=== PATIENT | male | born 1970 | race Caucasian/White ===

== ENCOUNTER 2021-01-11 05:34 | Observation (INO) ==
--- NOTE | 2020-12-24 16:09 | PAT Medication Instructions ---
Medication Instructions Date of Service December 24, 2020 Home Medications losartan 50 mg PO HS Take evening before surgery losartan 50 mg PO HS OTHERWISE NOTHING TO EAT OR DRINK AFTER MIDNIGHT Other Notes If you have any questions please call us at [phone] or [phone] or [phone] or [phone]
--- NOTE | 2020-12-28 08:17 | Anesthesiology Consultation ---
Date of Service December 28, 2020 Assessment & Plan (1) Encounter for pre-operative examination: Chart Review Chart Review: Acceptable Risk for Surgery (pending preop Covid testing results ) and Patient seen in Pre Admission Testing Per PAT appt on 12/28/20, pt resides in [facility]. 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 Wears tania at work but not in public. Pt is NOT vaccinated. No known Covid positive contacts or Covid related symptoms. No known Covid infection in the past 90 days. Preop Covid testing scheduled 01/08/21 at [facility] (pt will check with office if they do Sunday testing- if not- recommended patient go on 01/07/21)= will await results. Educated on importance of self quarantining, social distancing and wearing mask in public both for the patient after Covid testing done- pt voices understanding. Teaching & Discussion Pre-Anesthesia Teaching/Discussion Notes: Instructed NPO after midnight before surgery,except medications with 15 cc of water. Medication instructions provided according to the PAT guidelines. History Surgery Operation Date: 01/11/21 12:20 Proposed Procedures p C5-C6 Anterior Cervical Discectomy and Fusion, Possible C6-C7 Hardware Removal, Spinal Cord Monitoring - Ike Valderrama, Height/Weight Height: 5 ft 11 in Weight: 104.7 kg Allergies Allergy/AdvReac Type Severity Reaction Status Date / Time No Known Allergies Allergy Verified 12/24/20 08:06 Medications Home Medications Medication Instructions Recorded Confirmed Last Taken losartan 50 mg PO HS 12/24/20 12/24/20 Unknown Past Medical History Medical History Chronic back pain NECK TO LEFT ARM GERD (gastroesophageal reflux disease) Well controlled and stable History of COVID-19 DX'D WITH COVID 08/2020-TESTED AT [id number] AT HOME-SYMPTOM RESOLVED Hypertension Exercise / Class Metabolic Activity II 4-5 Yardwork/Stairs/Walk up hill (one flight of stairs - no chest pain or SOB ) Past Family History Family History Other No known health problems Past Surgical History Surgical History H/O hand surgery LEFT INDEX FINGER H/O neck surgery History of herniorrhaphy Past Anesthesia History No Hx of Anesthesia Complications and No Family Hx of Anesthesia Complications History of PONV No Hx of PONV and No Hx of Motion Sickness STOP BANG Total 2 Social History Smoking Status: Never smoker Do You Dip or Chew Tobacco: No Hx Alcohol Use: Yes Alcohol type: beer, wine and hard liquor alcohol intake frequency: a few times a month Hx Substance Use: No Review of Systems Occ snoring- no witnessed apnea- no hx of sleep study Patient denies chest pain, shortness of breath, dyspnea on exertion, cough, wheezing, palpitations. No hx of seizures, stroke, [place].. No hx of blood clots or blood transfusions Physical Exam Vital Signs VITALS BP 128/90 P 69 TEMP 97.3 SP02 96% RESP 16 Constitutional no acute distress ENMT Mouth: no TMJ clicking Thyromental Distance: > or= 3.5 Finger Breadths (3.5) Mallampati Class: II Mouth / Teeth: 1. Chipped tooth Neck + thick neck (mild ); neck extension not limited Respiratory normal respiratory effort; no respiratory distress Auscultation: lungs clear to auscultation bilaterally; no wheezes Cardiovascular Rate/Rhythm: regular rate and regular rhythm Heart Sounds: no murmur Vessels: no carotid bruit Musculoskeletal Spine: + pain with cervical ROM (mild) Extremities: extremities normal to inspection Psychiatric Orientation: alert Lab Results Anesthesia Preop Results Results Anesthesia Widget: WBC 4.20 K/uL (4.8-10.8) L 12/28/20 Hgb 15.0 g/dL (14.0-18.0) 12/28/20 Hct 42.0 % (42-52) 12/28/20 Plt 168 K/uL (130-400) 12/28/20 Na 140 mmol/L (136-145) 12/28/20 K 4.1 mmol/L (3.5-5.1) 12/28/20 Cl 107 mmol/L (98-107) 12/28/20 CO2 26 mmol/L (21-32) 12/28/20 BUN 21 mg/dl (7-18) H 12/28/20 Creat 1.17 mg/dl (0.6-1.4) 12/28/20 Glucose Level 112 mg/dl (70-99) H 12/28/20 PT 10.1 Seconds (9.0-12.0) 12/28/20 PTT 27.9 Seconds (21.0-31.0) 12/28/20 INR 1.0 (0.9-1.1) 12/28/20 Urine Color Yellow 12/28/20 Urine Appearance Clear (Clear) 12/28/20 Urine pH 5.0 (4.5-7.5) 12/28/20 Urine Specific [place] 1.020 (1.000-1.030) 12/28/20 Urine Protein Negative (Negative) 12/28/20 Urine Glucose (UA) Negative (Negative) 12/28/20 Urine Ketones Negative (Negative) 12/28/20 Urine Blood Negative (Negative) 12/28/20 Urine Nitrite Negative (Negative) 12/28/20 Urine Bilirubin Negative (Negative) 12/28/20 Urine Urobilinogen Negative (Negative) 12/28/20 Urine Leukocyte Esterase Negative (Negative) 12/28/20 Blood Type O Positive 12/28/20 Antibody Screen NEGATIVE 12/28/20 Testing Electrocardiogram Date: 12/28/20 Findings: + SB @ (57bpm) Otherwise normal EKG per cardio. Chest X-Ray Date: 12/28/20 Findings: + NAD
[~2021-01-11 05:34] MED LIST: MISSING PHYSICIAN SIGNATURE ON ORDER SCH
[2021-01-11] MEDS ORDERED: CeleBREX 200 MG CAP PO SCH (06:00)
[2021-01-11] MEDS ORDERED: LR 15ML/HR IV SCH (06:00)
[2021-01-11] MEDS ORDERED: ACETAMINOPHEN 500 MG TAB PO SCH (06:00)
[2021-01-11] MEDS ORDERED: GABAPENTIN 900 MG DOSE PO SCH (06:00)
[2021-01-11] MEDS ORDERED: ceFAZolin 2000MG 2,000 MG/15 ML SYR IV SCH (06:00)
[2021-01-11] MEDS ORDERED: HYDROmorphone INJ 2 MG/ML SYR/VIAL ONE (07:03)
[2021-01-11] MEDS ORDERED: MIDAZOLAM HCL 1 MG/ML 2ML VIAL ONE (07:03)
[2021-01-11] MEDS ORDERED: fentaNYL citrate 100 MCG/2 ML VIAL ONE (07:03)
[2021-01-11] MEDS ORDERED: ePHEDrine sulfate 50 MG/ML AMP IV PRN (07:04)
[2021-01-11] MEDS ORDERED: MEPERIDINE HCL 25 MG/ML CARP/VIAL IV PRN (07:04)
[2021-01-11] MEDS ORDERED: LABETALOL HCL IV 5 MG/ML 20ML IV PRN (07:04)
[2021-01-11] MEDS ORDERED: PHENYLEPHRINE 100MCG/ML 5ML SYR IV PRN (07:04)
[2021-01-11] MEDS ORDERED: ONDANSETRON INJ 2 MG/ML 2 ML VIAL IV PRN ×2 (07:04→12:03)
[2021-01-11] MEDS ORDERED: ATROPINE SULFATE 0.1 MG/ML 10ML SYR IV PRN (07:04)
--- NOTE | 2021-01-11 07:31 | History & Physical Bridge Note ---
Date of Service January 11, 2021 History & Physical Bridge Note I have examined the patient, reviewed the History & Physical and in the interval since the performance of the History & Physical I have noted the following changes of clinical significance: no changes noted
--- NOTE | 2021-01-11 07:32 | History & Physical Report ---
Date of Service January 11, 2021 Assessment & Plan (1) Cervical stenosis of spinal canal: Admission and Anticipated Discharge Date Admission Date: C5-C6 anterior cervical discectomy and fusion, possible C6-C7 hardware removal History of Present Illness Chief Complaint: Neck and arm pain Primary Care Provider: Zen Dove This is a 50-year-old male who presents with chronic persistent neck and arm pain. Failing course of nonoperative care is here for surgical invention. Allergies Allergy/AdvReac Type Severity Reaction Status Date / Time No Known Allergies Allergy Verified 01/11/21 06:45 Home Medications Medication Instructions Recorded Confirmed Type losartan 50 mg PO HS 12/24/20 01/11/21 History Past Med/Surg History Medical History (Updated 01/11/21 @ 07:31 by Ike Valderrama DO) Chronic back pain NECK TO LEFT ARM GERD (gastroesophageal reflux disease) Well controlled and stable History of COVID-19 DX'D WITH COVID 08/2020-TESTED AT [id number] AT HOME-SYMPTOM RESOLVED Hypertension Obesity Surgical History H/O hand surgery LEFT INDEX FINGER H/O neck surgery History of herniorrhaphy Family History Other No known health problems Social History Smoking Status: Never smoker Second Hand Exposure: Yes (SARAH SO-SMOKES OUTSIDE); Do You Dip or Chew Tobacco: No; Hx Alcohol Use: Yes Alcohol type: beer, wine and hard liquor Hx Substance Use: No Preferred Language: German Communication Ability: Effective Utility Person Required: No Beliefs That Will Affect Care: None Current Living Situation: Significant Other current occupational status: employed 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
[2021-01-11] MEDS ORDERED: PROPOFOL IV EMULSION 10 MG/ML 20 ML VIAL IV ONE (08:15)
[2021-01-11] MEDS ORDERED: LIDOCAINE 2% 2 ML VIAL/AMP(20MG/ML) INFIL ONE (08:15)
[2021-01-11] MEDS ORDERED: DEXAMETHASONE SOD INJ 4 MG/ML VIAL ONE (08:15)
[2021-01-11] MEDS ORDERED: ONDANSETRON INJ 2 MG/ML 2 ML VIAL ONE (08:15)
[2021-01-11] MEDS ORDERED: FLOSEAL HEMOSTATIC MATRIX 10ML TOP ONE (08:51)
--- NOTE | 2021-01-11 08:54 | Operative Report ---
Post Operative Report Pre & Post Diagnosis Operation Date: 01/11/21 07:45 Pre-Op Diagnosis: Cervical spinal stenosis with radiculopathy Post-Op Diagnosis: Same I identified the patient and participated in the time-out.: Yes Procedure Operation Date: 01/11/21 07:45 Actual Procedures #1 anterior cervical discectomy with bilateral foraminotomies C5-C6. #2 anterior cervical arthrodesis C5-C6. #3 placement of globus coalition cage 7 mm in height filled with I factor C5-C6. Surgeon Ike Valderrama, Barrel Endshaker Adjuster Hellen Calloway Estimated Blood Loss 10 Findings Consistent with Post-Op Diagnosis Specimens None Indications This is a 50-year-old male who presents with above-mentioned diagnosis after failing since course of nonoperative care is here for the above-mentioned procedure. Description of Procedure Patient was met with identified informed consent obtained. Patient was then taken to the operative suite underwent ablation placed in supine position Mack table with the head in the Kline sugar reprocess operator head. All bony prominences well-padded eyes inspected to ensure no external pressure placed upon the. This point the anterior cervical spine was prepped and draped in a sterile fashion. With assistance of fluoroscopy identified the C5-C6 displacement transverse incision was placed along the anterior cervical spine overlying this region. Sharp dissection with the assistance of bipolar electrocautery performed down to and exposing the anterior cervical spine at C5-C6. Self-retaining retractors placed. Then performed a complete discectomy out to the uncovertebral joints bilaterally. Tensed distracting pins were utilized to assist in visualization. Removed all posterior annular fibers longitudinal ligament bilateral foraminotomies performed. The endplates were then burred to subcortical bleeding bone and a 7 mm coalition cage tapped in position. Was filled with I factor. Was then screwed into place with fluoroscopic visualization. The incision was then copiously irrigated explored to ensure no damage to surrounding structures remaining bleeding. 10 round REED drain inserted. The incision was then closed with 2 Vicryl in the fashion of 4 Monocryl for final skin closure. Steri-Strip sterile dressings placed. Patient will continue PACU stable condition. Please note spinal cord monitoring was utilized at the procedure no changes noted. Lastly Hellen Calloway was present at the entire procedure involved the patient positioning complex portions of the surgery and final skin closure. I attest to the content of the Intraoperative Record and any orders documented therein. Any exceptions are noted below.
--- NOTE | 2021-01-11 09:37 | Fluoroscopy Report ---
FL cervical 2-3V CLINICAL HISTORY: ACDF C5-6/POSS C6-7 COMPARISON STUDY: 09/30/2012 FLUOROSCOPY TIME: 19 seconds. NUMBER OF FLUOROSCOPIC IMAGES: 2 FINDINGS: 2 intraoperative fluoroscopic spot images demonstrate interval anterior cervical discectomy and fusion at the C5-C6 level. There is evidence for a prior anterior cervical discectomy and fusion at the C6-7 level. A cervical drain overlies the neck. IMPRESSION: 1. Intraoperative fluoroscopic spot images performed during a C5-6 anterior cervical discectomy and f usion ACT 112: Negative or not required by law. Electronically signed by: Alok Myers M.D. 01/11/2021 9:35 AM
[2021-01-11] MEDS: fentaNYL citrate 100 MCG/2 ML VIAL IV PRN ×4 (09:40→09:55)
--- NOTE | 2021-01-11 10:18 | Anesthesiology Progress Note ---
Date of Service January 11, 2021 Anesthesia Post Procedure Vital Signs Vital Signs: Temp Pulse Pulse Resp BP BP Pulse Ox 01/11/21 10:10 36.9 C 84 11 L 129/80 100 01/11/21 10:01 89 12 163/96 H 98 01/11/21 09:50 72 12 163/94 H 98 01/11/21 09:40 77 12 151/100 H 96 01/11/21 09:30 79 12 157/105 H 100 01/11/21 09:20 102 H 20 153/94 H 94 01/11/21 09:14 36.3 C L 98 H 16 174/99 H 99 01/11/21 06:31 36.5 C 68 18 140/89 98 Pain Intensity Left Shoulder: Pain Intensity: 2 Anterior Neck: Pain Intensity: 3 Transfer of Care Handoff Completed per policy Notes Mental Status: alert / awake / arousable Patient Amnestic to Procedure: Yes Nausea / Vomiting: adequately controlled Pain: adequately controlled Airway Patency, RR, SpO2: stable & adequate BP & HR: stable & adequate Hydration State: stable & adequate Anesthetic Complications: no major complications apparent and Pt Satisfied with anesthetic care Notes: The patient is awake and comfortable. He has a small amount of blood on his neck dressing but minimal blood in the drain. His neck does not appear swollen and he has no trouble breathing. I spoke to the patient and his preoperatively about letting a nurse know immediately if he has any trouble breathing or neck swelling. He will have continuous pulse oximetry on the floor.
[2021-01-11] MEDS ORDERED: NEOSTIGMINE METHYLSULFATE 1 MG/ML 10ML VIAL ONE (10:25)
[2021-01-11] MEDS ORDERED: GLYCOPYRROLATE 0.2 MG/ML VIAL ONE (10:25)
[2021-01-11] MEDS ORDERED: ROCURONIUM BROMIDE 10 MG/ML 5 ML VIAL IV ONE (10:25)
[2021-01-11] MEDS ORDERED: SUCCINYLCHOLINE CHLORIDE 20 MG/ML 10 ML VIAL IV ONE (10:25)
[2021-01-11] MEDS: HYDROmorphone INJ 1 MG/ML SYRINGE IV PRN ×4 (11:10→11:25)
[2021-01-11] MEDS ORDERED: HYDROmorphone INJ 1 MG/ML SYRINGE IV PRN (12:03)
[2021-01-11] MEDS ORDERED: NALOXONE HCL 0.4 MG/1 ML VIAL/CARP IV PRN (12:03)
[2021-01-11] MEDS ORDERED: FAMOTIDINE 20 MG TAB PO PRN (12:03)
[2021-01-11] MEDS ORDERED: hydrOXYzine HCl 25 MG TAB PO PRN (12:03)
[2021-01-11] MEDS ORDERED: SOD PHOSPHATE/SOD BIPHOSPHATE ENEMA 132 ML BTL PR PRN (12:03)
[2021-01-11] MEDS ORDERED: HYDROmorphone INJ 0.5 MG/0.5 ML SYR IV PRN (12:03)
[2021-01-11] MEDS ORDERED: traMADol HCL 50 MG TABLET PO PRN (12:03)
[2021-01-11] MEDS ORDERED: ACETAMINOPHEN 1,000 MG/100 ML VIAL IV PRN (12:03)
[2021-01-11] MEDS ORDERED: RACEPINEPHRINE 2.25% NEBU SOLN 0.5 ML VIAL INH PRN (12:03)
[2021-01-11] MEDS ORDERED: DO NOT ADMINISTER FLU VACCINE PRN (12:03)
[2021-01-11] MEDS ORDERED: DO NOT ADMINISTER PNEUMOCOCCAL VACCINE PRN (12:03)
[2021-01-11] MEDS ORDERED: dexAMETHasone 8 MG in SYRINGE 0 ML IV PRN (12:03)
[2021-01-11] MEDS ORDERED: ONDANSETRON 4 MG OD TAB PO PRN (12:03)
[2021-01-11] MEDS ORDERED: METOCLOPRAMIDE HCL INJ 5 MG/ML 2 ML VIAL IV PRN (12:03)
[2021-01-11] MEDS ORDERED: LORazepam 0.5 MG/1 ML VIAL IV PRN (12:03)
[2021-01-11] MEDS ORDERED: LORazepam 0.5 MG TAB PO PRN (12:03)
[2021-01-11] MEDS ORDERED: ACETAMINOPHEN 500 MG TAB PO PRN (12:03)
[2021-01-11] MEDS ORDERED: PROMETHAZINE HCL 12.5 MG in SODIUM CHLORIDE 0.9% 50 ML IV PRN (12:03)
[2021-01-11] MEDS ORDERED: diphenhydrAMINE Capsule 25 MG CAP PO PRN (12:03)
[2021-01-11] MEDS ORDERED: MAGNESIUM HYDROXIDE SUSP 30 ML UDC PO PRN (12:03)
[2021-01-11] MEDS ORDERED: ALUMINUM/MAGNESIUM SUSP 30 ML UDC PO PRN (12:03)
[2021-01-11] MEDS: LACTATED RINGER'S 1,000 ML IV SCH ×3 (12:17→20:54)
[2021-01-11] MEDS: ceFAZolin 2000MG 2,000 MG/15 ML SYR IV SCH ×2 (16:36→23:12)
[2021-01-11] MEDS: oxyCODONE HCL IR 5 MG TAB (IMMEDIATE RELEASE) PO PRN ×2 (18:37→23:12)
[2021-01-11] MEDS ORDERED: DOCUSATE SODIUM/SENNA 50/8.6MG TAB PO SCH (21:00)
[2021-01-11] MEDS ORDERED: LOSARTAN POTASSIUM 50 MG TAB PO SCH (21:00)
[2021-01-12] MEDS ORDERED: POLYETHYLENE (MIRALAX) 17 GM PACK PO SCH (06:00)
--- NOTE | 2021-01-12 10:11 | Discharge Summary ---
Date of Service January 12, 2021 Admission HPI Per Admitting Provider This is a 50-year-old male who presents with chronic persistent neck and arm pain. Failing course of nonoperative care is here for surgical invention. Principal Diagnosis Cervical radiculopathy Discharge Data Allergies Allergy/AdvReac Type Severity Reaction Status Date / Time No Known Allergies Allergy Verified 01/11/21 06:45 Procedures Performed Operation Date: 01/11/21 07:45 Actual Procedures p C5-C6 Anterior Cervical Discectomy and Fusion, Spinal Cord Monitoring(Not Applicable) - Ike Valderrama DO Ordered Studies 01/11/21 07:45 FL cervical 2-3V Routine Hospital Course (1) Cervical stenosis of spinal canal: Patient went anteroseptal discectomy and fusion tolerates well second orthopedic for postop labor postop day 1 was open ambulating well. Arm symptoms markedly improved. Swallowing well. No hoarseness. REED drain decreasing probably. Excellent strength testing. Subsequent discharge home. Discharge orders instructions from the chart for further review. Total Time Total Time Spent Total Time Spent (In Minutes): 20 minutes Discharge Plan Discharge Items Patient Disposition: Home - Self-Care Reason For Visit: Spinal Stenosis, Cervical Region Discharge Diagnosis: Cervical spinal stenosis with radiculopathy Activity: As commented below Non-emergency contact: Primary Care Provider Call non-emergency contact if: you have any medication questions Follow-up/Referrals: Zen Dove [Primary Care Provider] - Diet: Regular Addtl Attending Provider Instructions: ACTIVITY RECOMMENDATIONS: SELF CARE INSTRUCTIONS AFTER CERVICAL FUSIONS 1. No smoking. Smoking drastically decreases the chance of a solid fusion. 2. No bending, lifting more than 5 pounds, or twisting (roll like a log when turning in bed). 3. You may shower 3 days after surgery. Thoroughly dry wound. Do not soak in the tub. 4. Cervical collar: Must be worn at all times including sleeping. You may remove the brace only to bath, eat and if you are sitting in a recliner. 5. Please walk as much as you can for exercise. Gradually increase the distance that you walk as your endurance increases. SPECIAL CARE INSTRUCTIONS: VERY IMPORTANT TO READ AND REVIEW A. Do not take any anti-inflammatory medications (i.e. Indocin, Advil, Aspirin, Naprosyn, Aleve, Motrin, etc.) as these may inhibit the chance of a solid fusion. Tylenol is okay to take. B. Your surgical incision has been closed with a cosmetic suture under the skin that will dissolve in about 6 weeks. In 14 days, you can use a pair of clean scissors and cut the suture that is left outside of the skin at the ends of your incision. C. Complications are uncommon, but please contact us if you have any signs or symptoms of: 1. wound infection (fever higher than 102.5 degrees F, redness, separation of wound, drainage, or increasing pain from the incision) 2. blood clots in legs (pain, swelling, redness and warmth in legs) 3. urinary tract infection (fever higher than 102.5 degrees, burning upon urination or increased frequency of urination) 4. nerve problems (inability to walk on your toes or heels, numbness, loss of bowel or bladder control) 5. any other symptoms that concern you. D. Please call the office at if you have any concerns or questions about your operation or recovery. MANAGING PAIN AFTER SPINAL SURGERY 1. Narcotic medication is intended for short-term use and will be provided for surgical pain. Surgical pain usually lasts for a period of 4-6 weeks. Narcotic medication includes Percocet, Vicodin, Darvocet, Tylenol #3 or Lortab. 2. Longer-term pain is more appropriately treated with non-narcotic medication such as Tylenol ES. 3. Muscle spasm is not appropriately treated with narcotics. Muscle relaxers such as Soma, Flexeril or Skelaxin can be used along with Tylenol ES. 4. Remember that we all live with some "aches and pains". This is not unusual or uncommon after an injury or as we get older. 5. We will provide appropriate medication within the normal guidelines of their prescribed use. We will also be very cautious and aware of potential abuse and extended duration of patients' medication needs. 6. Please allow 2-3 days to process refills. Prescriptions will not be mailed but must be picked up at the office. FOLLOW UP VISIT: Keep your scheduled follow-up appointment. Any questions, please call the office at . Pending Studies at Discharge: No Stand-Alone Forms: My EVIIVO, Smoking Cessation Medications and DC Order Prescriptions: New tramadol 50 mg tablet 50 mg PO Q6H PRN (Reason: pain, moderate) Qty: 20 RF: 0 oxycodone 5 mg tablet 5 mg PO Q6H PRN (Reason: pain, severe) Qty: 20 RF: 0 Continued losartan 50 mg Tablet 50 mg PO HS RF: 0 Discharge Orders: Discharge Order (Routine); Ordered 01/12/21 Ordered By: Ike Valderrama Admission Data Admit Date/Time: 01/11/21 09:18 Attending Provider: Ike Valderrama Admit Provider: Ike Valderrama Primary Care Provider: Zen Dove
[2021-01-13] MEDS ORDERED: bisacodyL 10 MG SUPP PR PRN (08:55)
== END 2021-01-12 11:05 | disposition home or self-care (01) | DRG 473 ==
LOC: ASU 05:34 → PACUINP 09:18 → INTOOBSV 09:18 → 3E 12:09